=== PATIENT | female | born 1940 | race Caucasian/White ===

== ENCOUNTER 2020-11-13 09:06 | Inpatient (IN) | payer OTHER ==
[~2020-11-13] VITALS: Ht 170.2 cm; Wt 58.7 kg
[2020-11-13 09:10] VITALS: BP 151/50
[2020-11-13 11:23] LABS: ABSOLUTE EOSINOPHILS 0.1 thou/uL (0.0-0.7); ABSOLUTE LYMPHOCYTES 0.7 thou/uL (0.8-5.3); ABSOLUTE MONOCYTES 0.3 thou/uL (0.0-1.2); BASOPHILS 0.6 %; EOSINOPHILS 1.9 %; HEMATOCRIT 31.2 % (37.0-47.0); HEMOGLOBIN 10.3 gm/dL (12.0-15.0); LYMPHOCYTES 11.4 %; MCH 29.6 pg (26.0-34.0); MCHC 32.9 g/dL (28.0-37.0); MCV 89.9 fL (80.0-100.0); MONOCYTES 4.1 %; MPV 9.4 fl. (7.2-11.1); NUCLEATED RBCS 0 /100WBC; PLATELET COUNT* 184 thou/uL (150-400); RBC 3.46 mil/uL (4.20-5.00); RDW-CV 18.4 % (10.5-14.5); WBC 6.1 thou/uL (4.0-11.0)
[2020-11-13 11:30] LABS: CALCIUM 9.3 mg/dL (8.5-10.1); POTASSIUM 4.3 mmol/L (3.5-5.1)
[2020-11-13 14:47] VITALS: BP 125/56
--- NOTE | 2020-11-13 15:56 | EKG ---
[place] [address] ELECTROCARDIOGRAM REPORT Name: LESVIA GUERRA Room: [address] IN [facility].#: [id number] Admission: 11/13/20 Attend Phys: Rohit Steiner Discharge: Date of : 42 Date of Service: 11/13/20 1126 Report #: [id number] THIS REPORT FOR: //name// [facility] ED Test Date: 2020-11-13 Test Time: 11:26:27 Pat Name: LESVIA GUERRA Department: Room: [facility] Gender: F [employer]: TM : 1940 Requested By: Kong Veronica Order Number: [id number] MD: Daniel Cade Measurements Intervals [place] Rate: 71 P: 73 NM: 129 QRS: 24 QRSD: 86 T: 1 QT: 322 QTc: 350 Interpretive Statements Sinus rhythm Probable left atrial enlargement Anterior infarct, old Baseline wander in lead(s) II,III,aVR,aVL,aVF No previous ECG available for comparison Electronically Signed On 11-13-2020 15:56:11 CDT by Daniel Cade [email or web address] <ELECTRONICALLY SIGNED> By: Daniel Cade MD, [facility] 11/13/20 1556 1126 1126 Daniel Cade MD, [facility] /EPI
[2020-11-13 16:00] VITALS: BP 128/55
[2020-11-13 20:00] VITALS: BP 124/50
[2020-11-14] VITALS: BP 123/54
[2020-11-14 01:33] LABS: URINE BILIRUBIN NEGATIVE (Negative); URINE BLOOD NEGATIVE (Negative); URINE CLARITY CLEAR; URINE COLOR YELLOW; URINE GLUCOSE-RANDOM NEGATIVE (Negative); URINE KETONES NEGATIVE (Negative); URINE LEUKOCYTES NEGATIVE (Negative); URINE NITRITE NEGATIVE (Negative); URINE PROTEIN TRACE (Negative); URINE SPECIFIC GRAVITY 1.025 (1.005-1.030); URINE UROBILINOGEN 0.2 E.U./dl (0.2-1.0)
[2020-11-14 08:35] VITALS: BP 124/56
[2020-11-14] MEDS ORDERED: METHOTREXATE 22.5 M1 PO (10:52)
[2020-11-14] MEDS ORDERED: FOLIC ACID1 MG PO (10:54)
[2020-11-14] MEDS ORDERED: ASPIRIN325 PO (10:56)
[2020-11-14 15:40] VITALS: BP 102/41
[2020-11-14 16:00] VITALS: BP 107/47
[2020-11-14 20:00] VITALS: BP 123/65
[2020-11-15 01:23] VITALS: BP 125/60
[2020-11-15 08:00] VITALS: BP 124/71
[2020-11-15 08:31] LABS: HEMATOCRIT 25.6 % (37.0-47.0); HEMOGLOBIN 8.6 gm/dL (12.0-15.0); MCH 30.1 pg (26.0-34.0); MCHC 33.5 g/dL (28.0-37.0); MCV 90.1 fL (80.0-100.0); MPV 9.8 fl. (7.2-11.1); RBC 2.84 mil/uL (4.20-5.00); RDW-CV 17.7 % (10.5-14.5)
[2020-11-15 09:04] LABS: CALCIUM 8.4 mg/dL (8.5-10.1); CREATININE 0.9 mg/dL (0.6-1.3)
[2020-11-15 17:05] VITALS: BP 138/82
[2020-11-15 19:40] VITALS: BP 153/52
[2020-11-16 00:27] VITALS: BP 110/46
[2020-11-16 07:56] VITALS: BP 151/62
[2020-11-16 12:26] VITALS: BP 86/69
[2020-11-16 17:37] VITALS: BP 93/77
[2020-11-17] VITALS: BP 111/56
[2020-11-17 07:50] VITALS: BP 122/56
[2020-11-17 17:09] VITALS: BP 105/47
[2020-11-17 20:00] VITALS: BP 115/53
[2020-11-18] VITALS: BP 105/51
[2020-11-18 09:00] VITALS: BP 126/54
[2020-11-18 12:46] LABS: ABSOLUTE EOSINOPHILS 0.2 thou/uL (0.0-0.7); ABSOLUTE LYMPHOCYTES 0.7 thou/uL (0.8-5.3); ABSOLUTE MONOCYTES 0.5 thou/uL (0.0-1.2); ABSOLUTE NEUTROPHILS 4.4 thou/uL (1.6-8.1); BASOPHILS 0.6 %; HEMATOCRIT 23.3 % (37.0-47.0); HEMOGLOBIN 7.7 gm/dL (12.0-15.0); LYMPHOCYTES 12.6 %; MCH 29.8 pg (26.0-34.0); MCHC 33.1 g/dL (28.0-37.0); MONOCYTES 7.9 %; MPV 8.5 fl. (7.2-11.1); NUCLEATED RBCS 0 /100WBC; PLATELET COUNT* 215 thou/uL (150-400); POLYS 75.9 %; RBC 2.59 mil/uL (4.20-5.00); RDW-CV 17.3 % (10.5-14.5); WBC 5.7 thou/uL (4.0-11.0)
[2020-11-18 12:59] LABS: ALBUMIN 1.8 g/dL (3.4-5.0); CALCIUM 8.5 mg/dL (8.5-10.1); CREATININE 0.8 mg/dL (0.6-1.3); POTASSIUM 4.1 mmol/L (3.5-5.1); TOTAL BILIRUBIN 0.2 mg/dL (<0.1-1.0); TOTAL PROTEIN 5.7 g/dL (6.4-8.2)
[2020-11-18 16:00] VITALS: BP 111/67
[2020-11-18 20:00] VITALS: BP 122/56
[2020-11-19 15:55] VITALS: BP 100/45
[2020-11-19 21:04] VITALS: BP 128/48
[2020-11-20] VITALS: BP 104/40
[2020-11-20 07:40] VITALS: BP 105/49
[2020-11-20 15:19] VITALS: BP 102/39
[2020-11-20 19:50] VITALS: BP 111/61
[2020-11-21 08:10] VITALS: BP 113/50
[2020-11-21 16:00] VITALS: BP 83/30
[2020-11-21 16:01] VITALS: BP 94/35
[2020-11-21 16:10] VITALS: BP 87/37
[2020-11-21 17:50] VITALS: BP 102/53
[2020-11-21 19:40] VITALS: BP 106/47
[2020-11-22 08:00] VITALS: BP 95/57
== END 2020-11-22 15:20 | DRG 522 ==
LOC: M.ERS 09:06 → M.2W 11:03 → M.TBA-ER 11:03 → M.2W 15:11 → M.3W 11-19 08:01
PROVIDERS: Emergency Medicine Emergency Medical Services; Family Medicine; ADMIT Internal Medicine; ATTEND Internal Medicine
PROC: 0SRR019 Replacement of Right Hip Joint, Femoral Surface with Metal Synthetic Substitute, Cemented, Open Approach (ICD-10-PCS; principal; 2020-11-14)
DX: S72.001A Fracture of unspecified part of neck of right femur, initial encounter for closed fracture (principal); D62 Acute posthemorrhagic anemia; E44.0 Moderate protein-calorie malnutrition; N17.9 Acute kidney failure, unspecified; Z20.822 Contact with and (suspected) exposure to COVID-19; Z96.642 Presence of left artificial hip joint; M06.9 Rheumatoid arthritis, unspecified; F17.210 Nicotine dependence, cigarettes, uncomplicated; N18.30 Chronic kidney disease, stage 3 unspecified; Z68.20 Body mass index [BMI] 20.0-20.9, adult; Z72.89 Other problems related to lifestyle; Z79.82 Long term (current) use of aspirin; Z79.899 Other long term (current) drug therapy; W18.39XA Other fall on same level, initial encounter; Y93.89 Activity, other specified; Y92.89 Other specified places as the place of occurrence of the external cause; Y99.8 Other external cause status

== ENCOUNTER 2020-12-31 12:24 | Inpatient (IN) | payer OTHER ==
[~2020-12-31] VITALS: Ht 157.5 cm; Wt 45.4 kg
--- NOTE | ~2020-12-31 | PROC ---
[address] [address] PROCEDURE REPORT Name: LESVIA GUERRA Room: [address]#: [id number] Admission: 12/31/20 Attend Phys: Mj Jasmine MD Discharge: 01/09/21 Date of : 42 Report #: [id number] THIS REPORT FOR: cc: Regis Reddy Bradley L. DO [facility],Medical Records Staff ~ For GI report, please see the Provation report in [employer] content. By: 0655Medical Records Staff GATO /DARYL
--- NOTE | ~2020-12-31 | H ---
[address] [address] HISTORY AND PHYSICAL Name: LESVIA GUERRA Room: [address] IN [facility]#: [id number] Admission: 12/31/20 Attend Phys: Mj Jasmine MD Discharge: Date of : 42 Report #: [id number] THIS REPORT FOR: cc: Regis Reddy Bradley L. DO [facility],Medical Records Staff ~ Please refer to the History and Physical performed in the physician's office. By: 03Medical Records Staff GATO /DARYL
[2020-12-31 12:24] VITALS: BP 115/60
[~2020-12-31 12:24] MED LIST: ASPIRIN325 PO; FOLIC ACID1 MG PO; METHOTREXATE 22.5 M1 PO
[2020-12-31 13:13] LABS: URINE BLOOD NEGATIVE (Negative); URINE CLARITY SL CLOUDY; URINE COLOR BROWN; URINE GLUCOSE-RANDOM NEGATIVE (Negative); URINE KETONES NEGATIVE (Negative); URINE LEUKOCYTES-REFLEX NEGATIVE (Negative); URINE PROTEIN 1+ (Negative); URINE SPECIFIC GRAVITY 1.025 (1.005-1.030)
[2020-12-31 13:14] LABS: ICTOTEST (BILI CONFIRMATORY) Negative (Negative); URINE BILIRUBIN NEGATIVE (Negative); URINE NITRITE-REFLEX POSITIVE (Negative)
[2020-12-31 13:19] LABS: HEMATOCRIT 27.4 % (37.0-47.0); HEMOGLOBIN 8.6 gm/dL (12.0-15.0); MCH 28.4 pg (26.0-34.0); MCHC 31.4 g/dL (28.0-37.0); MCV 90.3 fL (80.0-100.0); MPV 9.3 fl. (7.2-11.1); NUCLEATED RBCS 0 /100WBC; PLATELET COUNT* 248 thou/uL (150-400); RBC 3.03 mil/uL (4.20-5.00); WBC 19.8 thou/uL (4.0-11.0)
[2020-12-31 13:29] LABS: CALCIUM 9.4 mg/dL (8.5-10.1); CREATININE 1.5 mg/dL (0.6-1.3); SQUAMOUS >10 Many /LPF (0-3)
[2020-12-31 13:30] LABS: CASTS None Seen /LPF (None Seen); CRYSTALS None Seen /LPF (None Seen); URINE WBC-REFLEX 0-5 Rare /HPF (0-5)
[2020-12-31 13:31] LABS: URINE RBC 0-2 Rare /HPF (0-2)
[2020-12-31 13:39] LABS: ALBUMIN 2.5 g/dL (3.4-5.0); TOTAL BILIRUBIN 0.4 mg/dL (<0.1-1.0); TOTAL PROTEIN 7.2 g/dL (6.4-8.2)
[2020-12-31 14:33] LABS: ABSOLUTE LYMPHOCYTES 0.6 thou/uL (0.8-5.3); ABSOLUTE MONOCYTES 0.4 thou/uL (0.0-1.2); ABSOLUTE NEUTROPHILS 18.8 thou/uL (1.6-8.1); HYPOCHROMASIA Occasional; MACROCYTES Occasional; PLATELET ESTIMATE ADEQUATE
--- NOTE | 2020-12-31 15:48 | EKG ---
[place] [address] ELECTROCARDIOGRAM REPORT Name: LESVIA GUERRA Room: [place] [address] ADM IN [facility]#: [id number] Admission: 12/31/20 Attend Phys: Mj Jasmine, Discharge: Date of : 42 Date of Service: 12/31/20 1310 Report #: [id number] THIS REPORT FOR: //name// [facility] ED Test Date: 2020-12-31 Test Time: 13:10:33 Pat Name: LESVIA GUERRA Department: Room: [facility] Gender: F Nitro Man: LYNNETTE : 1940 Requested By: Rj Prince Order Number: [id number] MD: Zane Bella Measurements Intervals [place] Rate: 94 P: 0 IN: 120 QRS: 45 QRSD: 107 T: -12 QT: 341 QTc: 427 Interpretive Statements Sinus tachycardia Ventricular premature complex Anterior infarct, acute (LAD) Compared to ECG 11/13/2020 11:26:27 Ventricular premature complex(es) now present Sinus rhythm no longer present Myocardial infarct finding still present Electronically Signed On 12-31-2020 15:47:54 [employer]EMAK[employer] MACHINE by Zane Bella [email or web address] <ELECTRONICALLY SIGNED> By: Zane Bella MD, FACC 12/31/20 1547 1310 1310 Zane Bella MD, FAC /EPI
[2020-12-31 18:02] VITALS: BP 112/71
[2020-12-31 21:10] VITALS: BP 121/64
[2021-01-01] VITALS (8 sets, daily range): BP systolic 96–153; BP diastolic 41–113
[2021-01-01 06:39] LABS: ABSOLUTE LYMPHOCYTES 0.5 thou/uL (0.8-5.3); ABSOLUTE MONOCYTES 0.4 thou/uL (0.0-1.2); ABSOLUTE NEUTROPHILS 11.4 thou/uL (1.6-8.1); EOSINOPHILS 0.3 %; HEMATOCRIT 22.8 % (37.0-47.0); HEMOGLOBIN 7.3 gm/dL (12.0-15.0); LYMPHOCYTES 3.7 %; MCH 28.9 pg (26.0-34.0); MCHC 32.2 g/dL (28.0-37.0); MCV 89.9 fL (80.0-100.0); MONOCYTES 3.1 %; MPV 8.6 fl. (7.2-11.1); NUCLEATED RBCS 0 /100WBC; PLATELET COUNT* 193 thou/uL (150-400); POLYS 92.9 %; RBC 2.53 mil/uL (4.20-5.00); WBC 12.2 thou/uL (4.0-11.0)
[2021-01-01 06:43] LABS: CALCIUM 8.4 mg/dL (8.5-10.1); CREATININE 0.9 mg/dL (0.6-1.3); POTASSIUM 3.7 mmol/L (3.5-5.1)
[2021-01-01] MEDS ORDERED: PREDNISONE 10 M10 MG PO ×2 (18:54→18:55)
[2021-01-02] VITALS (7 sets, daily range): BP systolic 90–128; BP diastolic 42–50
[2021-01-02 04:56] LABS: ABSOLUTE EOSINOPHILS 0.1 thou/uL (0.0-0.7); ABSOLUTE LYMPHOCYTES 0.6 thou/uL (0.8-5.3); ABSOLUTE MONOCYTES 0.4 thou/uL (0.0-1.2); ABSOLUTE NEUTROPHILS 4.9 thou/uL (1.6-8.1); BASOPHILS 0.2 %; EOSINOPHILS 1.1 %; HEMATOCRIT 21.1 % (37.0-47.0); LYMPHOCYTES 10.6 %; MCH 29.5 pg (26.0-34.0); MCHC 32.1 g/dL (28.0-37.0); MONOCYTES 6.2 %; NUCLEATED RBCS 0 /100WBC; PLATELET COUNT* 177 thou/uL (150-400); POLYS 81.9 %; RBC 2.29 mil/uL (4.20-5.00); RDW-CV 17.2 % (10.5-14.5)
[2021-01-02 05:03] LABS: APTT 35.6 Seconds (25.0-31.3); INR 1.1; PROTIME 11.4 Seconds (9.20-11.50)
[2021-01-02 05:19] LABS: ALBUMIN 1.8 g/dL (3.4-5.0); CALCIUM 8.2 mg/dL (8.5-10.1); CREATININE 0.7 mg/dL (0.6-1.3); MAGNESIUM 2.2 mg/dL (1.8-2.4); POTASSIUM 3.5 mmol/L (3.5-5.1); TOTAL BILIRUBIN 0.3 mg/dL (<0.1-1.0); TOTAL PROTEIN 4.9 g/dL (6.4-8.2)
[2021-01-02 05:21] LABS: HEMOGLOBIN 6.8 gm/dL (12.0-15.0)
--- NOTE | 2021-01-02 17:29 | CON ---
[address] [address] CONSULTATION Name: SHELUANLESVIA Ashvin Room: [address] IN .R.#: [id number] Admission: 12/31/20 Attend Phys: Mj Jasmine MD Discharge: Date of : 42 Report #: [id number] THIS REPORT FOR: cc: Regis Reddy Bradley L. DO Pervez, Adeel MD ~ DATE OF CONSULTATION: 01/01/2021 REQUESTING PHYSICIAN: Mj Jasmine MD INDICATION FOR CONSULTATION: Lung masses. HISTORY OF PRESENT ILLNESS: This is a 80-year-old female. Past medical history includes a history of rheumatoid arthritis. The patient does have an extensive history of smoking in the past. She does not carry a diagnosis of COPD. A couple of months ago, the patient fell and had a hip fracture. She underwent a right hip hemiarthroplasty. According to the , eventually, when the patient was discharged home, she began having difficulty ambulating and the states that he also has limited mobility and therefore he was not able to assist her to a significant extent. The patient was now unable to take care of herself and was found covered with feces and urine. The patient currently is not on supplemental oxygen. Her blood pressure is towards the lower end of normal range, but still within the normal range at 101/51. She initially did have acute renal insufficiency with fluid resuscitation. Her creatinine has returned to normal, although the BUN is still elevated. The patient's imaging did indicate significant fecal impaction and she has undergone disimpaction of her feces via a sigmoidoscopy. She is still drowsy and is waking up from sedation; and therefore, she was not able to provide a review of systems. PAST MEDICAL HISTORY: Rheumatoid arthritis. Recent right hip replacement; has previously had a left hip replacement as well. The patient is aware of having lung masses; she was previously recommended a biopsy and she had declined; and therefore, a followup imaging of her chest was planned. SOCIAL HISTORY: There is an extensive history of smoking in the past, she has now discontinued. No known history of heavy alcohol use or illegal drug use. CURRENT MEDICATIONS: List in [employer] reviewed. HOME MEDICATIONS: List also in [employer] reviewed. ALLERGIES: [place] [address] CONSULTATION Name: LESVIA GUERRA Room: [address]#: [id number] Admission: 12/31/20 Attend Phys: Mj Jasmine MD Discharge: Date of : 42 Report #: [id number] PHYSICAL EXAMINATION: GENERAL: She is drowsy. She is arousable. She was not able to answer orientation questions. VITAL SIGNS: Has a pulse of 78 and a blood pressure of 101/51. She is not on supplemental oxygen, is saturating in the high 90s. Respiratory rate is 16. She is afebrile with a temperature of 36.7; she did have a low-grade fever of 37.6 earlier. HEENT: Head is normocephalic and atraumatic. Pupils are equal and reactive. There is no throat erythema. NECK: Does not show raised JVP, asymmetry, mass or lymph nodes. CHEST: Symmetrical expansion on inspection and palpation. On auscultation, breath sounds are bilaterally equal, no added sounds. HEART: Regular. There is no murmur. ABDOMEN: Soft. There is no obvious tenderness. LOWER EXTREMITIES: No edema, no calf tenderness. SKIN: Dry and intact. NEUROLOGICAL: Moves all extremities bilaterally equally and spontaneously with no focal deficit identified. IMAGING STUDIES: The patient's CT chest performed yesterday is reviewed. The patient's chest x-ray performed yesterday is also reviewed and compared with the patient's previous chest x-rays. LABORATORY DATA: The patient's lab work, which is consistent with acute renal failure, which is now better, is in [employer] and is also reviewed. ASSESSMENT AND PLAN: 1. Lung masses. This is consistent with a malignancy. They are bilateral. Therefore, it will be more likely that this is a metastatic malignancy. I suspect that there may be an intraabdominal malignancy, which may not be obvious on the CT of the abdomen and pelvis due to the presence of fecal impaction. These masses could be approached via a CT-guided lung biopsy. I understand the patient previously declined biopsy. If she is now agreeable to a biopsy, then after initial stabilization, I suggest consulting Interventional Radiology for a CT-guided lung biopsy. Once her fecal impaction resolves, I have ordered an x-ray of the abdomen tomorrow to see where we stand. Suggest also repeating a CT of the abdomen and pelvis to assess for a possible site of malignancy in the abdomen. Primarily, the masses appear to be longstanding and are suspected to be secondary to an underlying malignancy; however, a component of infection/infiltrate is also possible. The patient already is on vancomycin as well as ceftriaxone and this would cover. 2. History of smoking/suspected chronic obstructive pulmonary disease. She is not actively bronchospastic at this time. I only ordered p.r.n. nebulized [address] [place] [address] CONSULTATION Name: LESVIA GUERRA Room: [address]#: [id number] Admission: 12/31/20 Attend Phys: Mj Jasmine MD Discharge: Date of : 42 Report #: [id number] bronchodilators for now. 3. Acute renal failure. This has improved, however, BUN is still elevated. I will give her some more IV fluids overnight. These could be discontinued tomorrow if she is able to take orally. 4. History of rheumatoid arthritis. 5. High aspiration risk. We will also suggest consulting Speech for swallow evaluation. 6. History of recent right hip replacement/possible cellulitis at the surgical site. 7. Past history of left hip replacement. 8. Deep venous thrombosis prophylaxis, is on Lovenox. Thanks for this consultation. <ELECTRONICALLY SIGNED> By: Ervin Barraza MD 01/02/21 1729 1833 [id number] Braraza MD /nt
--- NOTE | 2021-01-02 17:42 | 2DMMODE ---
[place] [address] 2 D/M-MODE ECHOCARDIOGRAM Name: LESVIA GUERRA Room: [address] IN [facility]#: [id number] Admission: 12/31/20 Attend Phys: Mj Jasmine, Discharge: Date of : 42 Date of Service: 01/02/21 174 Report #: [id number] THIS REPORT FOR: cc: Regis Reddy Bradley L. DO Liston, Michael J. MD [facility] ~ APPROVED REPORT Study performed: 01/02/2021 15:54:38 EXAM: Comprehensive 2D, Doppler, and color-flow Echocardiogram Patient Location: In-Patient Room #: [facility] Status: routine BSA: 1.42 HR: 77 bpm BP: 95/45 mmHg Rhythm: NSR Other Information Study Quality: Good Indications Murmur 2D Dimensions IVSd: 10.45 (7-11mm) LVOT Diam: 19.96 (18-24mm) LVDd: 55.05 mm PWd: 10.19 (7-11mm) LVDs: 36.77 (25-40mm) Aortic Root: 27.69 mm Volumes Left Atrial Volume (Systole) LA ESV Index: 42.70 mL/m2 Aortic Valve AoV Peak Gomez.: 3.44 m/s AO Peak Gr.: 47.32 mmHg LVOT Max P.39 mmHg AO Mean Gr.: 29.69 mmHg LVOT Mean P.63 mmHg LVOT Max V: 1.26 m/s AO V2 VTI: 66.96 cm LVOT Mean V: 0.89 m/s LAILA (VTI): 1.25 cm2 LVOT V1 VTI: 26.82 cm AI Coos: 3.25 m/s2 [place] [address] 2 D/M-MODE ECHOCARDIOGRAM Name: LESVIA GUERRA Room: [address] IN ..#: [id number] Admission: 12/31/20 Attend Phys: Mj Jasmine, Discharge: Date of : 42 Date of Service: 01/02/21 1741 Report #: [id number] PHT: 300.12 ms Mitral Valve MV Mean Gr.: 3.87 mmHg E/A Ratio: 0.87 MV Decel. Time: 321.51 ms MV E Max Gomez.: 1.39 m/s MV PHT: 93.24 ms MVA (PHT): 2.36 cm2 TDI E/Lateral E': 27.80 E/Medial E': 27.80 Medial E' Gomez.: 0.05 m/s Lateral E' Gomez.: 0.05 m/s Tricuspid Valve RAP Estimate: 5.00 mmHg TR Peak Gr.: 28.40 mmHg RVSP: 33.00 mmHg PA Pressure: 33.00 mmHg Left Ventricle The left ventricle is normal size. There is akinesis of the mid septum anterior wall and apex consistent with prior infarct. Mild to moderate concentric left ventricular hypertrophy. Left ventricular systolic function is moderately decreased. LVEF is 40-45%. Grade I - abnormal relaxation pattern. Right Ventricle The right ventricle is normal size. The right ventricular systolic function is normal. Atria Left atrium is mildly dilated. The right atrium size is normal. Aortic Valve Moderate aortic valve sclerosis. Moderate aortic regurgitation. Moderate aortic stenosis. Mitral Valve Moderate mitral annular calcification. There is no mitral valve regurgitation noted. Moderate mitral stenosis. Tricuspid Valve The tricuspid valve is normal in structure. Trace tricuspid regurgitation. [place] [address] 2 D/M-MODE ECHOCARDIOGRAM Name: LESVIA GUERRA Ashvin Room: [address]#: [id number] Admission: 12/31/20 Attend Phys: Mj Jasmine, Discharge: Date of : 42 Date of Service: 01/02/21 1741 Report #: [id number] Pulmonic Valve The pulmonary valve is normal in structure. There is no pulmonic valvular regurgitation. Great Vessels The aortic root is normal in size. IVC is normal in size and collapses >50% with inspiration. Pericardium There is no pericardial effusion. <Conclusion> The left ventricle is normal size. Mild to moderate concentric left ventricular hypertrophy. Left ventricular systolic function is moderately decreased. LVEF is 40-45%. Grade I - abnormal relaxation pattern. There is akinesis of the mid septum anterior wall and apex consistent with prior infarct. Left atrium is mildly dilated. Moderate aortic valve sclerosis. Moderate aortic regurgitation. Moderate aortic stenosis. Trace tricuspid regurgitation. Mild pulmonary hypertension. IVC is normal in size and collapses >50% with inspiration. <ELECTRONICALLY SIGNED> By: Zane Bella MD, FACC 01/02/211740 40 40 Zane Bella MD, FACC /INF
--- NOTE | 2021-01-02 18:53 | CON ---
[address] [address] CONSULTATION Name: SHELUANLESVIA Ashvin Room: [address] IN ..#: [id number] Admission: 12/31/20 Attend Phys: Mj Jasmine MD Discharge: Date of : 42 Report #: [id number] THIS REPORT FOR: cc: Regis Reddy Bradley L. DO Namin, Farid M. MD ~ cc: Regis Reddy DO DATE OF CONSULTATION: 01/01/2021 Please note the time of this dictation, the patient was seen and physically examined by myself. REASON FOR CONSULTATION: Fecal impaction. HISTORY OF PRESENT ILLNESS: This is a 80-year-old female who presented to the Emergency Room and it is unclear that she was found by EMS to be covered in feces and urine while lying in bed. She was oriented to herself when she got to the hospital, but unable to regulate anytime or anything like that. The patient underwent a right hip replacement on November 13 of this year, went to rehab for a short period of time and then has been at home. It is unclear if she had anybody helping care for her and it was noted on imaging that she had a rectal impaction with a lot of liquid stool around coming out. Last night in talking to the nurse, she said every time she went in the room to check she had to clean her up, she said there was just a lot of liquid stool coming out and it had a foul odor to it. Unable to really get a lot of information from the patient at this time and most of it has been obtained from her chart, the nurse and her previous medical records. At the time that she was admitted, she had no complaints of any pain and she denied any nausea or vomiting or any coughing, fever or chills. ALLERGIES: No known drug allergies. MEDICATIONS FROM HOME: It appears methotrexate, folic acid and aspirin. PAST MEDICAL HISTORY: She has got rheumatoid arthritis in which she takes methotrexate, recent right hip fracture, acute renal failure, UTI. PAST SURGICAL INTERVENTION: She had right hip surgery in October of this year. FAMILY HISTORY: Noncontributory. SOCIAL HISTORY: Denies any recreational drugs. Does smoke and does indicate alcohol use, but to [place] [address] CONSULTATION Name: ELSVIA GUERRA Ashvin Room: [address]#: [id number] Admission: 12/31/20 Attend Phys: Mj Jasmine MD Discharge: Date of : 41 Report #: [id number] REVIEW OF SYSTEMS: Twelve-point review of systems is essentially negative except what is mentioned in the HPI. PHYSICAL EXAMINATION: VITAL SIGNS: Temperature 37.2, pulse 73, respirations 14, blood pressure 106/47. HEART: Regular rate and rhythm. LUNGS: Diminished. ABDOMEN: Soft, positive bowel sounds in all 4 quadrants with no masses or tenderness noted. LABORATORY DATA: Hemoglobin was 8.6 on admission, she is 7.3; white count on admission was 14.8, but she is down to 12.2; platelets were 193. BUN was 57, GFR 60. CT of the chest showed dominant mass in the left lower lobe. Chest x-ray confirming a persistent left mid lung mass at 3.[address] of the abdomen and pelvis shows severe rectal fecal impaction, gallbladder distention, otherwise negative. IMPRESSION: 1. Fecal impaction. 2. Incontinent stool. 3. Acute on chronic anemia. 4. Leukocytosis. 5. Rheumatoid arthritis, on methotrexate. 6. Chronic kidney disease 3. 7. Recent right hip fracture. PLAN: 1. Obtain abdominal x-ray this a.m. to establish stool burden and if fecal impaction is still present. 2. If above confirms fecal impaction, we will plan to proceed with a flex sig for disimpaction under anesthetic by Dr. London later today. 3. Obtain enteric stool cultures with O and P. 4. Further recommendations to be made after Dr. London sees the patient and reviews the above. Thank you for allowing us to participate in this patient's care. Please do not hesitate to call with any questions regard to this consult. <ELECTRONICALLY SIGNED> By: Uyen London MD 01/02/21 1853 0805 [id number] London MD /nt
[2021-01-02 20:51] LABS: HEMATOCRIT 23.1 % (37.0-47.0); HEMOGLOBIN 7.6 gm/dL (12.0-15.0)
[2021-01-03 01:20] VITALS: BP 90/45
[2021-01-03 04:34] LABS: ABSOLUTE EOSINOPHILS 0.2 thou/uL (0.0-0.7); ABSOLUTE LYMPHOCYTES 0.8 thou/uL (0.8-5.3); ABSOLUTE MONOCYTES 0.6 thou/uL (0.0-1.2); BASOPHILS 0.2 %; EOSINOPHILS 2.3 %; HEMOGLOBIN 7.6 gm/dL (12.0-15.0); MCH 29.2 pg (26.0-34.0); MCHC 32.9 g/dL (28.0-37.0); MCV 88.5 fL (80.0-100.0); MONOCYTES 8.1 %; MPV 9.1 fl. (7.2-11.1); NUCLEATED RBCS 0 /100WBC; PLATELET COUNT* 155 thou/uL (150-400); POLYS 79.4 %; RDW-CV 16.1 % (10.5-14.5); WBC 7.6 thou/uL (4.0-11.0)
[2021-01-03 04:48] LABS: ALBUMIN 1.5 g/dL (3.4-5.0); CALCIUM 7.6 mg/dL (8.5-10.1); CREATININE 0.8 mg/dL (0.6-1.3); POTASSIUM 3.2 mmol/L (3.5-5.1); TOTAL BILIRUBIN 0.3 mg/dL (<0.1-1.0); TOTAL PROTEIN 4.7 g/dL (6.4-8.2)
[2021-01-03 05:18] VITALS: BP 98/52
[2021-01-03 12:00] VITALS: BP 90/48
[2021-01-03 16:00] VITALS: BP 116/60
[2021-01-03 20:00] VITALS: BP 105/50
[2021-01-04 01:49] VITALS: BP 124/60
[2021-01-04 04:13] LABS: ABSOLUTE LYMPHOCYTES 0.4 thou/uL (0.8-5.3); ABSOLUTE MONOCYTES 0.6 thou/uL (0.0-1.2); ABSOLUTE NEUTROPHILS 6.9 thou/uL (1.6-8.1); BASOPHILS 0.2 %; HEMATOCRIT 26.7 % (37.0-47.0); HEMOGLOBIN 8.8 gm/dL (12.0-15.0); MCH 29.5 pg (26.0-34.0); MCHC 32.9 g/dL (28.0-37.0); MCV 89.4 fL (80.0-100.0); MONOCYTES 7.4 %; MPV 8.9 fl. (7.2-11.1); NUCLEATED RBCS 0 /100WBC; PLATELET COUNT* 171 thou/uL (150-400); POLYS 87.4 %; RBC 2.98 mil/uL (4.20-5.00); RDW-CV 16.8 % (10.5-14.5); WBC 7.9 thou/uL (4.0-11.0)
[2021-01-04 04:34] LABS: ALBUMIN 1.8 g/dL (3.4-5.0); CALCIUM 7.7 mg/dL (8.5-10.1); CREATININE 0.8 mg/dL (0.6-1.3); MAGNESIUM 2.1 mg/dL (1.8-2.4); TOTAL BILIRUBIN 0.3 mg/dL (<0.1-1.0); TOTAL PROTEIN 5.3 g/dL (6.4-8.2)
[2021-01-04 04:54] LABS: POTASSIUM 5.4 mmol/L (3.5-5.1)
[2021-01-04 05:55] VITALS: BP 120/60
[2021-01-04 08:05] VITALS: BP 131/59
[2021-01-04 14:44] VITALS: BP 103/56
[2021-01-04 17:51] VITALS: BP 96/53
[2021-01-04 20:00] VITALS: BP 88/40
[2021-01-05 00:03] VITALS: BP 107/51
[2021-01-05 04:00] VITALS: BP 90/55
[2021-01-05 04:45] LABS: HEMOGLOBIN 8.2 gm/dL (12.0-15.0); MCH 29.3 pg (26.0-34.0); MCHC 32.7 g/dL (28.0-37.0); MCV 89.5 fL (80.0-100.0); RBC 2.8 mil/uL (4.20-5.00); RDW-CV 16.4 % (10.5-14.5); WBC 9.3 thou/uL (4.0-11.0)
[2021-01-05 05:04] LABS: ALBUMIN 1.7 g/dL (3.4-5.0); CREATININE 0.8 mg/dL (0.6-1.3); MAGNESIUM 2.1 mg/dL (1.8-2.4); POTASSIUM 5.3 mmol/L (3.5-5.1); TOTAL BILIRUBIN 0.3 mg/dL (<0.1-1.0); TOTAL PROTEIN 5.1 g/dL (6.4-8.2)
[2021-01-05 07:51] VITALS: BP 129/65
[2021-01-05 12:00] VITALS: BP 90/43
[2021-01-05 16:15] VITALS: BP 96/51
[2021-01-05 20:00] VITALS: BP 105/52
[2021-01-05 20:06] LABS: HEMATOCRIT 26.7 % (37.0-47.0); HEMOGLOBIN 8.5 gm/dL (12.0-15.0)
[2021-01-06] VITALS: BP 99/45
[2021-01-06 04:00] VITALS: BP 126/48
[2021-01-06 04:32] LABS: ABSOLUTE LYMPHOCYTES 0.7 thou/uL (0.8-5.3); ABSOLUTE NEUTROPHILS 8.3 thou/uL (1.6-8.1); EOSINOPHILS 0.1 %; HEMATOCRIT 23.4 % (37.0-47.0); HEMOGLOBIN 7.6 gm/dL (12.0-15.0); MCH 28.9 pg (26.0-34.0); MCHC 32.6 g/dL (28.0-37.0); MCV 88.7 fL (80.0-100.0); MONOCYTES 9.5 %; MPV 9.3 fl. (7.2-11.1); NUCLEATED RBCS 0 /100WBC; PLATELET COUNT* 193 thou/uL (150-400); POLYS 83.4 %; RBC 2.64 mil/uL (4.20-5.00); RDW-CV 16.9 % (10.5-14.5)
[2021-01-06 04:47] LABS: ALBUMIN 1.6 g/dL (3.4-5.0); CALCIUM 7.6 mg/dL (8.5-10.1); CREATININE 0.8 mg/dL (0.6-1.3); POTASSIUM 4.9 mmol/L (3.5-5.1); TOTAL BILIRUBIN 0.2 mg/dL (<0.1-1.0); TOTAL PROTEIN 4.8 g/dL (6.4-8.2)
[2021-01-06 08:00] VITALS: BP 106/50
[2021-01-06 12:00] VITALS: BP 105/47
[2021-01-06 16:30] VITALS: BP 102/50
[2021-01-06 20:00] VITALS: BP 90/46
[2021-01-07] VITALS (7 sets, daily range): BP systolic 90–104; BP diastolic 45–65
[2021-01-07 04:31] LABS: HEMATOCRIT 20.8 % (37.0-47.0); MCH 29.5 pg (26.0-34.0); MCHC 33.5 g/dL (28.0-37.0); MPV 8.8 fl. (7.2-11.1); RBC 2.36 mil/uL (4.20-5.00); RDW-CV 16.5 % (10.5-14.5); WBC 8.4 thou/uL (4.0-11.0)
[2021-01-07 05:17] LABS: ALBUMIN 1.5 g/dL (3.4-5.0); CALCIUM 7.5 mg/dL (8.5-10.1); CREATININE 0.9 mg/dL (0.6-1.3); POTASSIUM 4.7 mmol/L (3.5-5.1); TOTAL BILIRUBIN 0.2 mg/dL (<0.1-1.0); TOTAL PROTEIN 4.7 g/dL (6.4-8.2)
[2021-01-08] VITALS: BP 90/44
[2021-01-08 04:00] VITALS: BP 100/52
[2021-01-08 07:32] VITALS: BP 111/56
[2021-01-08] MEDS ORDERED: MEGESTROL400 MG/11 PO (08:58)
[2021-01-08] MEDS ORDERED: ALBUTEROL2.5 MG/0.5 INH (08:58)
[2021-01-08] MEDS ORDERED: LEVOFLOXACIN500 MG PO (08:58)
[2021-01-08] MEDS ORDERED: ELIQUIS5 MG PO (08:58)
[2021-01-08] MEDS ORDERED: NOVOLOG100 UNIT/M SUBQ (08:58)
[2021-01-08] MEDS ORDERED: LINEZOLID600 MG PO (08:58)
[2021-01-08] MEDS ORDERED: BROVANA15 MCG/2 M INH (08:58)
[2021-01-08 12:00] VITALS: BP 92/76
[2021-01-08 12:58] VITALS: BP 91/48; BP 92/47; BP 93/47; BP 97/41; BP 97/50
[2021-01-08 18:21] LABS: HEMATOCRIT 26.3 % (37.0-47.0)
[2021-01-08 18:22] LABS: HEMOGLOBIN 8.8 gm/dL (12.0-15.0)
[2021-01-08 20:00] VITALS: BP 104/54
[2021-01-09 01:04] VITALS: BP 100/50
[2021-01-09 04:49] LABS: HEMATOCRIT 23.5 % (37.0-47.0); HEMOGLOBIN 7.7 gm/dL (12.0-15.0); MCH 27.9 pg (26.0-34.0); MCHC 32.8 g/dL (28.0-37.0); MCV 85.1 fL (80.0-100.0); MPV 8.6 fl. (7.2-11.1); RBC 2.76 mil/uL (4.20-5.00); RDW-CV 19.1 % (10.5-14.5); WBC 8.1 thou/uL (4.0-11.0)
[2021-01-09 04:55] LABS: CALCIUM 7.5 mg/dL (8.5-10.1); CREATININE 0.9 mg/dL (0.6-1.3); MAGNESIUM 2.2 mg/dL (1.8-2.4); POTASSIUM 4.7 mmol/L (3.5-5.1)
[2021-01-09 05:55] VITALS: BP 119/64
[2021-01-09 09:00] VITALS: BP 102/53
== END 2021-01-09 12:50 | DRG 871 ==
LOC: M.ERS 12:24 → M.TBA-ER 14:08 → M.2W 14:08 → M.TBA-ER 01-01 14:55 → M.2W 01-01 17:56
PROVIDERS: Family Medicine; Internal Medicine; Internal Medicine Critical Care Medicine; ADMIT Internal Medicine; ATTEND Internal Medicine
PROC: 0DJD8ZZ Inspection of Lower Intestinal Tract, Via Natural or Artificial Opening Endoscopic (ICD-10-PCS; principal; 2021-01-01)
PROC: 06H03DZ Insertion of Intraluminal Device into Inferior Vena Cava, Percutaneous Approach (ICD-10-PCS; 2021-01-07)
PROC: 30233N1 Transfusion of Nonautologous Red Blood Cells into Peripheral Vein, Percutaneous Approach (ICD-10-PCS; 2021-01-08)
DX: A41.9 Sepsis, unspecified organism (principal); E43 Unspecified severe protein-calorie malnutrition; J69.0 Pneumonitis due to inhalation of food and vomit; G92.8 Other toxic encephalopathy; N17.9 Acute kidney failure, unspecified; N39.0 Urinary tract infection, site not specified; K55.9 Vascular disorder of intestine, unspecified; K56.609 Unspecified intestinal obstruction, unspecified as to partial versus complete obstruction; I50.40 Unspecified combined systolic (congestive) and diastolic (congestive) heart failure; D62 Acute posthemorrhagic anemia; K92.2 Gastrointestinal hemorrhage, unspecified; Z68.1 Body mass index [BMI] 19.9 or less, adult; I13.0 Hypertensive heart and chronic kidney disease with heart failure and stage 1 through stage 4 chronic kidney disease, or unspecified chronic kidney disease; I82.411 Acute embolism and thrombosis of right femoral vein; I82.431 Acute embolism and thrombosis of right popliteal vein; I82.441 Acute embolism and thrombosis of right tibial vein; Z20.822 Contact with and (suspected) exposure to COVID-19; Z96.642 Presence of left artificial hip joint; E86.0 Dehydration; R33.9 Retention of urine, unspecified; M06.9 Rheumatoid arthritis, unspecified; K56.41 Fecal impaction; N18.30 Chronic kidney disease, stage 3 unspecified; R91.8 Other nonspecific abnormal finding of lung field; J43.9 Emphysema, unspecified; K64.8 Other hemorrhoids; K64.4 Residual hemorrhoidal skin tags; Z66 Do not resuscitate; R62.7 Adult failure to thrive; I25.5 Ischemic cardiomyopathy; I25.10 Atherosclerotic heart disease of native coronary artery without angina pectoris; I05.0 Rheumatic mitral stenosis; T38.0X5A Adverse effect of glucocorticoids and synthetic analogues, initial encounter; Z87.81 Personal history of (healed) traumatic fracture; Y92.89 Other specified places as the place of occurrence of the external cause; Z79.899 Other long term (current) drug therapy; Z28.21 Immunization not carried out because of patient refusal